=== PATIENT | male | born 1940 | race Caucasian/White ===

== ENCOUNTER 2020-11-16 21:38 | Inpatient (IN) | payer MEDICARE, BC ==
[2020-11-16] MEDS ORDERED: Ondansetron ODT 4 MG TAB PO PRN (23:17)
[2020-11-16] MEDS: Acetaminophen 500 MG TAB PO SCH (23:37)
[2020-11-17] MEDS: Acetaminophen 500 MG TAB PO SCH ×4 (05:19→23:51)
[2020-11-17 05:42] LABS: #Basophils 0.2 thou/uL (0.0-0.2); #Eosinphils 0.6 thou/uL (0.0-0.7); #Lymphocytes 1.5 thou/uL (1.20-3.40); #Monocytes 1.3 thou/uL (0.11-0.59); #Neutrophils 6.4 thou/uL (1.40-6.50); %Basophils 1.9 % (0.0-1.0); %Eosinophils 5.7 % (0.0-10.0); %Lymphocytes 14.7 % (21.0-51.0); %Monocytes 13.1 % (0.0-10.0); %Neutrophils 64.6 % (42.0-75.0); Hemoglobin 8.8 g/dL (14.0-18.0); Mean Corpuscular HGB CONC 33.5 g/dL (32.0-36.0); Mean Corpuscular Hemoglobin 33.7 pg (27.0-31.0); Mean Platelet Volume 5.4 fL (7.4-10.4); Platelet Count 322 thou/uL (130-400); RBC Distribution Width 12.6 % (11.5-14.5); White Blood Cell (WBC) Count 9.9 thou/uL (4.8-10.8)
[2020-11-17 05:52] LABS: Anion Gap 10 mmol/L (10-20); BUN (Urea Nitrogen) 16 mg/dL (8.4-25.7); Calc. Creatinine Clearance 91 mL/min (70-130); Calcium 8.7 mg/dL (7.8-10.44); Carbon Dioxide 29 mmol/L (23-31); Chloride 96 mmol/L (98-107); Glucose 97 mg/dL (83-110); Potassium 4.4 mmol/L (3.5-5.1); Sodium 131 mmol/L (136-145)
[2020-11-17] MEDS ORDERED: Bisacodyl 10 MG SUPP PR SCH (09:00)
[2020-11-17] MEDS ORDERED: Losartan Potassium 50 MG TAB PO SCH (09:00)
[2020-11-17] MEDS ORDERED: Carvedilol 25 MG TAB PO SCH (09:00)
[2020-11-17] MEDS: Ferrous Sulfate 325 MG TAB PO SCH ×2 (09:24→17:47)
[2020-11-17] MEDS: Loratadine 10 MG TAB PO SCH (09:25)
[2020-11-17] MEDS: Ascorbic Acid 500 mg Chewable Tablet PO SCH ×2 (09:25→20:29)
[2020-11-17] MEDS: Senokot S 8.6-50 MG TAB PO SCH ×2 (09:26→19:51)
[2020-11-17] MEDS: Polyethylene Glycol 3350 17 GM Packet PO SCH (09:27)
[2020-11-17] MEDS: Aspirin 81 mg Enteric Coated Tablet PO SCH ×2 (09:33→20:30)
[2020-11-17] MEDS: traMADol HCl 50 MG TAB PO PRN (11:33)
[2020-11-17] MEDS ORDERED: Bisacodyl 10 MG SUPP PR PRN (11:34)
[2020-11-17] MEDS: Tamsulosin HCl 0.4 MG CAP PO SCH (20:29)
[2020-11-17] MEDS: Carvedilol 25 MG TAB PO SCH (20:30)
[2020-11-18] MEDS: Acetaminophen 500 MG TAB PO SCH ×4 (04:59→23:31)
[2020-11-18 05:16] LABS: Anion Gap 11 mmol/L (10-20); BUN (Urea Nitrogen) 18 mg/dL (8.4-25.7); Calc. Creatinine Clearance 90 mL/min (70-130); Calcium 8.7 mg/dL (7.8-10.44); Carbon Dioxide 28 mmol/L (23-31); Chloride 96 mmol/L (98-107); Glucose 93 mg/dL (83-110); Sodium 130 mmol/L (136-145)
[2020-11-18] MEDS: Polyethylene Glycol 3350 17 GM Packet PO SCH (08:27)
[2020-11-18] MEDS: Ascorbic Acid 500 mg Chewable Tablet PO SCH ×2 (08:27→20:22)
[2020-11-18] MEDS: Loratadine 10 MG TAB PO SCH (08:28)
[2020-11-18] MEDS: Aspirin 81 mg Enteric Coated Tablet PO SCH ×2 (08:28→20:22)
[2020-11-18] MEDS: Losartan Potassium 50 MG TAB PO SCH (08:28)
[2020-11-18] MEDS: Ferrous Sulfate 325 MG TAB PO SCH ×2 (08:28→16:39)
[2020-11-18] MEDS: Carvedilol 25 MG TAB PO SCH ×2 (08:28→20:22)
[2020-11-18] MEDS: Senokot S 8.6-50 MG TAB PO SCH ×2 (08:28→20:22)
[2020-11-18] MEDS: Tamsulosin HCl 0.4 MG CAP PO SCH (20:22)
[2020-11-19] MEDS: Acetaminophen 500 MG TAB PO SCH ×4 (04:01→23:50)
[2020-11-19] MEDS: Senokot S 8.6-50 MG TAB PO SCH ×2 (08:59→20:21)
[2020-11-19] MEDS: Ferrous Sulfate 325 MG TAB PO SCH ×2 (09:00→17:41)
[2020-11-19] MEDS: Losartan Potassium 50 MG TAB PO SCH (09:00)
[2020-11-19] MEDS: Ascorbic Acid 500 mg Chewable Tablet PO SCH ×2 (09:00→20:27)
[2020-11-19] MEDS: Aspirin 81 mg Enteric Coated Tablet PO SCH ×2 (09:00→20:27)
[2020-11-19] MEDS: Carvedilol 25 MG TAB PO SCH ×2 (09:00→20:27)
[2020-11-19] MEDS: Loratadine 10 MG TAB PO SCH (09:00)
[2020-11-19] MEDS: Enoxaparin Sodium 40 MG/0.4 ML SYRINGE SC SCH (11:39)
[2020-11-19] MEDS: Polyethylene Glycol 3350 17 GM Packet PO SCH (12:34)
[2020-11-19] MEDS: Tamsulosin HCl 0.4 MG CAP PO SCH (20:27)
[2020-11-20] MEDS: Acetaminophen 500 MG TAB PO SCH ×4 (05:43→23:51)
[2020-11-20] MEDS: Ascorbic Acid 500 mg Chewable Tablet PO SCH ×2 (08:23→20:36)
[2020-11-20] MEDS: Ferrous Sulfate 325 MG TAB PO SCH ×2 (08:23→17:45)
[2020-11-20] MEDS: Aspirin 81 mg Enteric Coated Tablet PO SCH ×2 (08:24→20:36)
[2020-11-20] MEDS: Carvedilol 25 MG TAB PO SCH ×2 (08:24→20:36)
[2020-11-20] MEDS: Enoxaparin Sodium 40 MG/0.4 ML SYRINGE SC SCH (08:24)
[2020-11-20] MEDS: Polyethylene Glycol 3350 17 GM Packet PO SCH (08:25)
[2020-11-20] MEDS: Losartan Potassium 50 MG TAB PO SCH (08:25)
[2020-11-20] MEDS: Loratadine 10 MG TAB PO SCH (08:25)
[2020-11-20] MEDS: Senokot S 8.6-50 MG TAB PO SCH ×2 (08:26→20:36)
[2020-11-20] MEDS: Tamsulosin HCl 0.4 MG CAP PO SCH (20:36)
[2020-11-21 05:50] LABS: #Basophils 0.3 thou/uL (0.0-0.2); #Eosinphils 0.6 thou/uL (0.0-0.7); #Lymphocytes 1.8 thou/uL (1.20-3.40); #Monocytes 1.1 thou/uL (0.11-0.59); #Neutrophils 7.3 thou/uL (1.40-6.50); %Basophils 2.4 % (0.0-1.0); %Eosinophils 5.5 % (0.0-10.0); %Lymphocytes 15.8 % (21.0-51.0); %Monocytes 10.1 % (0.0-10.0); %Neutrophils 66.2 % (42.0-75.0); Hemoglobin 9.4 g/dL (14.0-18.0); Mean Corpuscular HGB CONC 32.7 g/dL (32.0-36.0); Mean Corpuscular Hemoglobin 33.9 pg (27.0-31.0); Mean Platelet Volume 4.6 fL (7.4-10.4); Platelet Count 442 thou/uL (130-400); Red Blood Cell (RBC) Count 2.77 mill/uL (4.70-6.10)
[2020-11-21 06:00] LABS: Anion Gap 11 mmol/L (10-20); BUN (Urea Nitrogen) 20 mg/dL (8.4-25.7); Calc. Creatinine Clearance 84 mL/min (70-130); Calcium 8.9 mg/dL (7.8-10.44); Carbon Dioxide 27 mmol/L (23-31); Chloride 100 mmol/L (98-107); Glucose 93 mg/dL (83-110); Potassium 5.3 mmol/L (3.5-5.1); Sodium 133 mmol/L (136-145)
[2020-11-21] MEDS: Acetaminophen 500 MG TAB PO SCH ×4 (06:09→23:28)
[2020-11-21] MEDS: Ferrous Sulfate 325 MG TAB PO SCH ×2 (08:41→16:27)
[2020-11-21] MEDS: Ascorbic Acid 500 mg Chewable Tablet PO SCH ×2 (08:42→20:23)
[2020-11-21] MEDS: Loratadine 10 MG TAB PO SCH (08:42)
[2020-11-21] MEDS: Aspirin 81 mg Enteric Coated Tablet PO SCH ×2 (08:42→20:23)
[2020-11-21] MEDS: Polyethylene Glycol 3350 17 GM Packet PO SCH (08:43)
[2020-11-21] MEDS: Senokot S 8.6-50 MG TAB PO SCH ×2 (08:43→20:23)
[2020-11-21] MEDS: Losartan Potassium 50 MG TAB PO SCH (08:45)
[2020-11-21] MEDS: Carvedilol 25 MG TAB PO SCH ×2 (08:45→20:23)
[2020-11-21] MEDS: Enoxaparin Sodium 40 MG/0.4 ML SYRINGE SC SCH (08:49)
[2020-11-21] MEDS: traMADol HCl 50 MG TAB PO PRN (15:54)
[2020-11-21] MEDS: Tamsulosin HCl 0.4 MG CAP PO SCH (20:23)
[2020-11-22 05:23] LABS: Anion Gap 13 mmol/L (10-20); BUN (Urea Nitrogen) 19 mg/dL (8.4-25.7); Calc. Creatinine Clearance 86 mL/min (70-130); Calcium 9.1 mg/dL (7.8-10.44); Carbon Dioxide 27 mmol/L (23-31); Chloride 100 mmol/L (98-107); Glucose 95 mg/dL (83-110); Potassium 5.5 mmol/L (3.5-5.1); Sodium 134 mmol/L (136-145)
[2020-11-22 05:24] LABS: #Basophils 0.2 thou/uL (0.0-0.2); #Eosinphils 0.5 thou/uL (0.0-0.7); #Lymphocytes 1.7 thou/uL (1.20-3.40); #Monocytes 1.1 thou/uL (0.11-0.59); #Neutrophils 7.3 thou/uL (1.40-6.50); %Basophils 1.9 % (0.0-1.0); %Eosinophils 4.6 % (0.0-10.0); %Lymphocytes 15.4 % (21.0-51.0); %Monocytes 10.1 % (0.0-10.0); %Neutrophils 68.1 % (42.0-75.0); Hemoglobin 9.1 g/dL (14.0-18.0); MDiff Complete? YES; Macrocytosis SLIGHT = 6-15 cells (100X) (0-5/hpf); Mean Corpuscular HGB CONC 33.3 g/dL (32.0-36.0); Mean Platelet Volume 4.6 fL (7.4-10.4); Platelet Count 464 thou/uL (130-400); Platelet Morphology Comment Appears Increased; Polychromasia SLIGHT = 2-3 cells (100X) (0-2/hpf); RBC Distribution Width 13.9 % (11.5-14.5); Red Blood Cell (RBC) Count 2.66 mill/uL (4.70-6.10); White Blood Cell (WBC) Count 10.8 thou/uL (4.8-10.8)
[2020-11-22] MEDS: Acetaminophen 500 MG TAB PO SCH ×4 (05:36→23:37)
[2020-11-22] MEDS: Senokot S 8.6-50 MG TAB PO SCH ×2 (08:57→20:24)
[2020-11-22] MEDS: Loratadine 10 MG TAB PO SCH (08:58)
[2020-11-22] MEDS: Ascorbic Acid 500 mg Chewable Tablet PO SCH ×2 (08:58→20:24)
[2020-11-22] MEDS: Aspirin 81 mg Enteric Coated Tablet PO SCH ×2 (08:58→20:24)
[2020-11-22] MEDS: Ferrous Sulfate 325 MG TAB PO SCH ×2 (08:58→17:43)
[2020-11-22] MEDS: Losartan Potassium 50 MG TAB PO SCH (08:59)
[2020-11-22] MEDS: Enoxaparin Sodium 40 MG/0.4 ML SYRINGE SC SCH (08:59)
[2020-11-22] MEDS: Polyethylene Glycol 3350 17 GM Packet PO SCH (09:00)
[2020-11-22] MEDS: traMADol HCl 50 MG TAB PO PRN (14:08)
[2020-11-22] MEDS: Carvedilol 6.25 MG TAB PO SCH (17:42)
[2020-11-22] MEDS: Tamsulosin HCl 0.4 MG CAP PO SCH (20:24)
[2020-11-23] MEDS: Acetaminophen 500 MG TAB PO SCH ×4 (05:54→23:04)
[2020-11-23] MEDS: Senokot S 8.6-50 MG TAB PO SCH ×2 (09:12→20:59)
[2020-11-23] MEDS: Carvedilol 6.25 MG TAB PO SCH ×2 (09:12→17:23)
[2020-11-23] MEDS: Enoxaparin Sodium 40 MG/0.4 ML SYRINGE SC SCH (09:12)
[2020-11-23] MEDS: Loratadine 10 MG TAB PO SCH (09:13)
[2020-11-23] MEDS: Ascorbic Acid 500 mg Chewable Tablet PO SCH ×2 (09:13→20:59)
[2020-11-23] MEDS: Losartan Potassium 50 MG TAB PO SCH (09:13)
[2020-11-23] MEDS: Ferrous Sulfate 325 MG TAB PO SCH ×2 (09:13→17:23)
[2020-11-23] MEDS: Aspirin 81 mg Enteric Coated Tablet PO SCH ×2 (09:13→20:59)
[2020-11-23] MEDS: Polyethylene Glycol 3350 17 GM Packet PO SCH (09:14)
[2020-11-23] MEDS: Tamsulosin HCl 0.4 MG CAP PO SCH (20:59)
[2020-11-24] MEDS: Acetaminophen 500 MG TAB PO SCH ×3 (05:28→17:22)
[2020-11-24 05:33] LABS: Anion Gap 13 mmol/L (10-20); BUN (Urea Nitrogen) 20 mg/dL (8.4-25.7); Calc. Creatinine Clearance 85 mL/min (70-130); Carbon Dioxide 27 mmol/L (23-31); Chloride 99 mmol/L (98-107); Glucose 98 mg/dL (83-110); Potassium 4.7 mmol/L (3.5-5.1); Sodium 134 mmol/L (136-145)
[2020-11-24 05:35] LABS: #Basophils 0.2 thou/uL (0.0-0.2); #Eosinphils 0.4 thou/uL (0.0-0.7); #Lymphocytes 1.4 thou/uL (1.20-3.40); #Monocytes 1.1 thou/uL (0.11-0.59); #Neutrophils 7.5 thou/uL (1.40-6.50); %Basophils 1.6 % (0.0-1.0); %Eosinophils 3.9 % (0.0-10.0); %Lymphocytes 13.5 % (21.0-51.0); %Monocytes 10.3 % (0.0-10.0); %Neutrophils 70.7 % (42.0-75.0); Hemoglobin 8.8 g/dL (14.0-18.0); Mean Corpuscular HGB CONC 32.5 g/dL (32.0-36.0); Mean Corpuscular Hemoglobin 33.3 pg (27.0-31.0); Mean Platelet Volume 4.8 fL (7.4-10.4); Platelet Count 470 thou/uL (130-400); RBC Distribution Width 13.6 % (11.5-14.5); Red Blood Cell (RBC) Count 2.64 mill/uL (4.70-6.10); White Blood Cell (WBC) Count 10.6 thou/uL (4.8-10.8)
[2020-11-24] MEDS: Enoxaparin Sodium 40 MG/0.4 ML SYRINGE SC SCH (08:23)
[2020-11-24] MEDS: Ascorbic Acid 500 mg Chewable Tablet PO SCH ×2 (08:23→21:01)
[2020-11-24] MEDS: Senokot S 8.6-50 MG TAB PO SCH ×2 (08:24→21:01)
[2020-11-24] MEDS: Loratadine 10 MG TAB PO SCH (08:24)
[2020-11-24] MEDS: Aspirin 81 mg Enteric Coated Tablet PO SCH ×2 (08:24→21:01)
[2020-11-24] MEDS: Losartan Potassium 50 MG TAB PO SCH (08:25)
[2020-11-24] MEDS: Polyethylene Glycol 3350 17 GM Packet PO SCH (08:25)
[2020-11-24] MEDS: Carvedilol 6.25 MG TAB PO SCH ×2 (08:25→17:22)
[2020-11-24] MEDS: Ferrous Sulfate 325 MG TAB PO SCH ×2 (08:25→17:21)
[2020-11-24] MEDS: Tamsulosin HCl 0.4 MG CAP PO SCH (21:01)
[2020-11-25] MEDS: Acetaminophen 500 MG TAB PO SCH ×5 (00:19→23:28)
[2020-11-25] MEDS: Carvedilol 6.25 MG TAB PO SCH ×2 (08:25→17:22)
[2020-11-25] MEDS: Ferrous Sulfate 325 MG TAB PO SCH ×2 (08:25→17:23)
[2020-11-25] MEDS: Enoxaparin Sodium 40 MG/0.4 ML SYRINGE SC SCH (08:26)
[2020-11-25] MEDS: Loratadine 10 MG TAB PO SCH (08:26)
[2020-11-25] MEDS: Losartan Potassium 50 MG TAB PO SCH (08:26)
[2020-11-25] MEDS: Aspirin 81 mg Enteric Coated Tablet PO SCH ×2 (08:26→21:14)
[2020-11-25] MEDS: Ascorbic Acid 500 mg Chewable Tablet PO SCH ×2 (08:26→21:14)
[2020-11-25] MEDS: Senokot S 8.6-50 MG TAB PO SCH ×2 (08:27→21:13)
[2020-11-25] MEDS: Polyethylene Glycol 3350 17 GM Packet PO SCH (08:27)
[2020-11-25] MEDS: Tamsulosin HCl 0.4 MG CAP PO SCH (21:14)
[2020-11-26] MEDS: Acetaminophen 500 MG TAB PO SCH ×3 (05:13→17:49)
[2020-11-26] MEDS: Carvedilol 6.25 MG TAB PO SCH ×2 (09:01→17:50)
[2020-11-26] MEDS: Ferrous Sulfate 325 MG TAB PO SCH ×2 (09:02→17:50)
[2020-11-26] MEDS: Ascorbic Acid 500 mg Chewable Tablet PO SCH ×2 (09:02→20:58)
[2020-11-26] MEDS: Aspirin 81 mg Enteric Coated Tablet PO SCH ×2 (09:02→20:58)
[2020-11-26] MEDS: Loratadine 10 MG TAB PO SCH (09:03)
[2020-11-26] MEDS: Enoxaparin Sodium 40 MG/0.4 ML SYRINGE SC SCH (09:03)
[2020-11-26] MEDS: Polyethylene Glycol 3350 17 GM Packet PO SCH (09:03)
[2020-11-26] MEDS: Losartan Potassium 50 MG TAB PO SCH (09:03)
[2020-11-26] MEDS: Senokot S 8.6-50 MG TAB PO SCH ×2 (09:04→20:57)
[2020-11-26] MEDS: Tamsulosin HCl 0.4 MG CAP PO SCH (20:58)
[2020-11-26 23:47] VITALS: BMI 26.1
[2020-11-27] MEDS: Acetaminophen 500 MG TAB PO SCH ×5 (00:01→23:04)
[2020-11-27] MEDS: Senokot S 8.6-50 MG TAB PO SCH ×2 (09:49→21:36)
[2020-11-27] MEDS: Loratadine 10 MG TAB PO SCH (09:49)
[2020-11-27] MEDS: Ascorbic Acid 500 mg Chewable Tablet PO SCH ×2 (09:49→21:35)
[2020-11-27] MEDS: Losartan Potassium 50 MG TAB PO SCH (09:49)
[2020-11-27] MEDS: Aspirin 81 mg Enteric Coated Tablet PO SCH ×2 (09:49→21:36)
[2020-11-27] MEDS: Polyethylene Glycol 3350 17 GM Packet PO SCH (09:50)
[2020-11-27] MEDS: Carvedilol 6.25 MG TAB PO SCH ×2 (09:50→17:20)
[2020-11-27] MEDS: Ferrous Sulfate 325 MG TAB PO SCH ×2 (09:50→17:20)
[2020-11-27] MEDS: Enoxaparin Sodium 40 MG/0.4 ML SYRINGE SC SCH (09:50)
[2020-11-27] MEDS: traMADol HCl 50 MG TAB PO PRN (21:35)
[2020-11-27] MEDS: Tamsulosin HCl 0.4 MG CAP PO SCH (21:36)
[2020-11-28 05:41] LABS: %Eosinophils 7.4 % (0.0-10.0); %Lymphocytes 20.3 % (21.0-51.0); %Monocytes 12.3 % (0.0-10.0); %Neutrophils 58.9 % (42.0-75.0); Hemoglobin 8.4 g/dL (14.0-18.0); Manual Diff?? NO; Mean Corpuscular HGB CONC 32.6 g/dL (32.0-36.0); Mean Corpuscular Hemoglobin 33.8 pg (27.0-31.0); Mean Platelet Volume 4.8 fL (7.4-10.4); Platelet Count 394 thou/uL (130-400); RBC Distribution Width 13.8 % (11.5-14.5); Red Blood Cell (RBC) Count 2.49 mill/uL (4.70-6.10); White Blood Cell (WBC) Count 8.5 thou/uL (4.8-10.8)
[2020-11-28 05:42] LABS: #Basophils 0.1 thou/uL (0.0-0.2); #Eosinphils 0.6 thou/uL (0.0-0.7); #Lymphocytes 1.7 thou/uL (1.20-3.40); %Basophils 1.1 % (0.0-1.0)
[2020-11-28 05:49] LABS: ALT (SGPT) 29 U/L (8-55); AST (SGOT) 29 U/L (5-34); Albumin 3.1 g/dL (3.4-4.8); Alkaline Phosphatase 126 U/L (40-110); Anion Gap 12 mmol/L (10-20); BUN (Urea Nitrogen) 17 mg/dL (8.4-25.7); Bilirubin, Total 0.7 mg/dL (0.2-1.2); Calc. Creatinine Clearance 87 mL/min (70-130); Calcium 9.1 mg/dL (7.8-10.44); Carbon Dioxide 29 mmol/L (23-31); Chloride 100 mmol/L (98-107); Globulin 2.3 g/dL (2.4-3.5); Glucose 91 mg/dL (83-110); Potassium 4.9 mmol/L (3.5-5.1); Protein, Total 5.4 g/dL (5.8-8.1); Sodium 136 mmol/L (136-145)
[2020-11-28] MEDS: Acetaminophen 500 MG TAB PO SCH ×4 (06:22→23:47)
[2020-11-28] MEDS: Senokot S 8.6-50 MG TAB PO SCH ×2 (09:26→20:46)
[2020-11-28] MEDS: Losartan Potassium 50 MG TAB PO SCH (09:26)
[2020-11-28] MEDS: Carvedilol 6.25 MG TAB PO SCH ×2 (09:26→17:39)
[2020-11-28] MEDS: Enoxaparin Sodium 40 MG/0.4 ML SYRINGE SC SCH (09:27)
[2020-11-28] MEDS: Ascorbic Acid 500 mg Chewable Tablet PO SCH ×2 (09:27→20:46)
[2020-11-28] MEDS: Polyethylene Glycol 3350 17 GM Packet PO SCH (09:27)
[2020-11-28] MEDS: Loratadine 10 MG TAB PO SCH (09:27)
[2020-11-28] MEDS: Aspirin 81 mg Enteric Coated Tablet PO SCH ×2 (09:27→20:46)
[2020-11-28] MEDS: Ferrous Sulfate 325 MG TAB PO SCH ×2 (09:27→17:39)
[2020-11-28] MEDS: Tamsulosin HCl 0.4 MG CAP PO SCH (20:46)
[2020-11-29] MEDS: Acetaminophen 500 MG TAB PO SCH ×4 (05:16→23:41)
[2020-11-29] MEDS: Ferrous Sulfate 325 MG TAB PO SCH ×2 (08:42→17:15)
[2020-11-29] MEDS: Enoxaparin Sodium 40 MG/0.4 ML SYRINGE SC SCH (08:43)
[2020-11-29] MEDS: Carvedilol 6.25 MG TAB PO SCH ×2 (08:43→17:15)
[2020-11-29] MEDS: Aspirin 81 mg Enteric Coated Tablet PO SCH ×2 (08:43→19:39)
[2020-11-29] MEDS: Ascorbic Acid 500 mg Chewable Tablet PO SCH ×2 (08:43→19:39)
[2020-11-29] MEDS: Loratadine 10 MG TAB PO SCH (08:44)
[2020-11-29] MEDS: Senokot S 8.6-50 MG TAB PO SCH ×2 (08:44→19:39)
[2020-11-29] MEDS: Polyethylene Glycol 3350 17 GM Packet PO SCH (08:44)
[2020-11-29] MEDS: Losartan Potassium 50 MG TAB PO SCH (08:44)
[2020-11-29] MEDS: Loperamide HCl 2 MG CAP PO PRN ×3 (14:54→19:38)
[2020-11-29] MEDS: Tamsulosin HCl 0.4 MG CAP PO SCH (19:39)
[2020-11-30] MEDS: Acetaminophen 500 MG TAB PO SCH ×4 (06:16→23:06)
[2020-11-30] MEDS: Loperamide HCl 2 MG CAP PO PRN (06:17)
[2020-11-30] MEDS: Carvedilol 6.25 MG TAB PO SCH ×2 (09:06→17:21)
[2020-11-30] MEDS: Loratadine 10 MG TAB PO SCH (09:07)
[2020-11-30] MEDS: Enoxaparin Sodium 40 MG/0.4 ML SYRINGE SC SCH (09:07)
[2020-11-30] MEDS: Aspirin 81 mg Enteric Coated Tablet PO SCH ×2 (09:07→22:11)
[2020-11-30] MEDS: Ferrous Sulfate 325 MG TAB PO SCH ×2 (09:07→17:21)
[2020-11-30] MEDS: Ascorbic Acid 500 mg Chewable Tablet PO SCH ×2 (09:07→22:11)
[2020-11-30] MEDS: Losartan Potassium 50 MG TAB PO SCH (09:08)
[2020-11-30] MEDS: Polyethylene Glycol 3350 17 GM Packet PO SCH (09:08)
[2020-11-30] MEDS: Senokot S 8.6-50 MG TAB PO SCH ×2 (09:08→22:10)
[2020-11-30] MEDS: Tamsulosin HCl 0.4 MG CAP PO SCH (22:11)
[2020-12-01] MEDS: Loperamide HCl 2 MG CAP PO PRN ×2 (05:36→08:40)
[2020-12-01] MEDS: Acetaminophen 500 MG TAB PO SCH (05:36)
[2020-12-01 07:33] VITALS: BP 138/63; TEMP 96.5
[2020-12-01] MEDS: Enoxaparin Sodium 40 MG/0.4 ML SYRINGE SC SCH (08:39)
[2020-12-01] MEDS: Carvedilol 6.25 MG TAB PO SCH (08:41)
[2020-12-01] MEDS: Ferrous Sulfate 325 MG TAB PO SCH (08:41)
[2020-12-01] MEDS: Ascorbic Acid 500 mg Chewable Tablet PO SCH (08:42)
[2020-12-01] MEDS: Losartan Potassium 50 MG TAB PO SCH (08:42)
[2020-12-01] MEDS: Loratadine 10 MG TAB PO SCH (08:43)
[2020-12-01] MEDS: Aspirin 81 mg Enteric Coated Tablet PO SCH (08:43)
[2020-12-01] MEDS: Senokot S 8.6-50 MG TAB PO SCH (08:44)
[2020-12-01] MEDS: Polyethylene Glycol 3350 17 GM Packet PO SCH (08:44)
== END 2020-12-01 11:00 | disposition home or self-care (01) | DRG 560 ==
LOC: NAV ACUTE 21:38
PROVIDERS: ADMIT Family Medicine; ATTEND Family Medicine
DX: Z47.89 Encounter for other orthopedic aftercare (principal); D62 Acute posthemorrhagic anemia; I10 Essential (primary) hypertension; N40.1 Benign prostatic hyperplasia with lower urinary tract symptoms; R33.8 Other retention of urine; Z98.49 Cataract extraction status, unspecified eye; Z87.891 Personal history of nicotine dependence; Z79.82 Long term (current) use of aspirin; D53.9 Nutritional anemia, unspecified
CPT/HCPCS: 80048; 80053; 82607; 82746; 85025; J1650